=== PATIENT | male | born 1940 | race Asian ===

== ENCOUNTER 2018-03-26 22:53 | Emergency (ER) | END 2018-03-27 01:51 | disposition home or self-care (01) ==

== ENCOUNTER 2018-03-28 12:44 | Observation (INO) | END 2018-03-29 14:50 | disposition home health service (06) ==

== ENCOUNTER 2018-07-14 09:31 | Observation (INO) | payer OTHER ==
[~2018-07-14] VITALS: Ht 177.8 cm; Wt 58.6 kg
[~2018-07-14 09:31] MED LIST: FLUT1BLS INH; IPRA3AMP29 HHN; LEVO500T48 PO; MED4DP PO; PANT40TA4 PO; SIMV80TA18 PO; TAMS0.4C2 PO
[2018-07-14] MEDS ORDERED: SOD CHLORIDE 0.9% 1,000 ML IV STA (10:58)
[2018-07-14] MEDS ORDERED: OMEP40CA6 PO (11:08)
[2018-07-14] MEDS ORDERED: SUCR1TAB56 PO (11:08)
[2018-07-14] MEDS ORDERED: SOD CHLORIDE 0.9% 1,000 ML IV SCH (13:32)
--- NOTE | 2018-07-14 13:36 | ERD ---
ER Documentation Chief Complaint Chief Complaint C/O UNABLE TO EAT OR DRINK DUE TO DIFFICULTY TO SWALLOWING HPI This is a 77-year-old male with a history of hypertension, hyperlipidemia, and dysphasia who presents to the ER for inability to eat and now inability to drink liquids. The patient states that he cannot swallow liquids and states that he has seen cloud systems administrator Dr. Roxann Cabrales an outpatient and has had a barium swallow which shows possible obstruction. The patient's states he is lost 17 pounds over the past 8 weeks and the patient is now having difficulty tolerating liquids so she was nervous and brought the patient in for evaluation. Patient denies any fevers chills, nausea or chest pain at this time ROS All systems reviewed and are negative except as per history of present illness. Medications Home Meds Reported Medications Sucralfate* (Carafate*) 1 Gm Tab, 1 GM PO Q6, TAB 07/14/18 Omeprazole* (Omeprazole*) 40 Mg Capsule.dr, 40 MG PO DAILY, #30 CAP 07/14/18 Tamsulosin Hcl* (Tamsulosin Hcl*) 0.4 Mg Cap.er.24h, 0.4 MG PO HS, CAP 03/28/18 Simvastatin* (Simvastatin*) 80 Mg Tablet, 80 MG PO QHS, #30 TAB 03/28/18 Discontinued Scripts Methylprednisolone* (Medrol* DOSE PACK) 4 Mg/Dose-Pack Tab.ds.pk, 4 MG PO . DIRECTED, #1 PACKET Prov:KENISHA DAVIS 03/29/18 Fluticasone/Vilanterol (Breo Ellipta 200-25 Mcg INH) 1 Each Blst.w.dev, 1 INH INH DAILY, #1 INHALER 3 Refills Prov:KENISHA DAVIS 03/29/18 Pantoprazole* (Pantoprazole*) 40 Mg Tablet.dr, 40 MG PO DAILY for 30 Days, 3 Refills Prov:KENISHA DAVIS 03/29/18 Ipratropium-Albuterol (Ipratropium-Albuterol) 0.5-3 Mg/3 Ml Ampul.neb, 3 ML HHN Q8H RESP THERAPY for 30 Days, 3 Refills Prov:KENISHA DAVIS 03/29/18 Levofloxacin* (Levaquin*) 500 Mg Tablet, 500 MG PO DAILY for 5 Days, TAB Start on 03/30 Prov:KENISHA DAVIS 03/29/18 Allergies Allergies: Coded Allergies: IVP Dye, Iodine Containing (Verified Adverse Reaction, Mild, SWELLING, 07/14/06) PMhx/Soc History of Surgery: Yes Anesthesia Reaction: No Hx Neurological Disorder: No Hx Respiratory Disorders: Yes (sob) Hx Cardiac Disorders: No Hx Psychiatric Problems: No Hx Miscellaneous Medical Probl: Yes (History of nasal and throat cancer) Hx Alcohol Use: Yes (occasional) Hx Substance Use: No Hx Tobacco Use: Yes Smoking Status: Current every day smoker Physical Exam Vitals Vital Signs Date Temp Pulse Resp B/P (MAP) Pulse Ox O2 O2 Flow FiO2 Time Delivery Rate 07/14/18 87 20 115/89 97 Room Air 12:45 (98) 07/14/18 98.6 84 18 134/91 94 09:38 (105) Physical Exam INITIAL VITAL SIGNS: Reviewed by me GENERAL: The patient is appearing elderly male in no acute distress HEENT: Dry mucous membranes, pupils equal, round, and reactive to light. EOMI. There is no scleral icterus. NECK: C-spine is soft and supple, there is no meningismus. There is no cervical lymphadenopathy. LUNGS: Clear to auscultation bilaterally. There are no rales, wheezes or rhonchi. HEART: Regular rate and rhythm, no murmurs, clicks, rubs or gallops. ABDOMEN: Soft, non-tender, non-distended. There are bowel sounds in all four quadrants. No rebound or guarding. EXTREMITIES: There is no peripheral cyanosis or edema. No focal swelling or erythema. NEUROLOGICAL: The patient moves all four extremities with 5/5 strength. Cranial nerves II - XII are intact. Normal gait. Alert and oriented SKIN: There is no apparent rash or petechiae. HEME/LYMPHATIC: There is no evidence of excessive bruising or lymphedema. PSYCHIATRIC: The patient does not appear anxious or depressed. Result Diagram: 07/14/18 1120 07/14/18 1120 Results 24 hrs Laboratory Tests Test 07/14/18 11:20 White Blood Count 8.2 10^3/ul Red Blood Count 5.39 10^6/ul Hemoglobin 15.3 g/dl Hematocrit 47.4 % Mean Corpuscular Volume 87.9 fl Mean Corpuscular Hemoglobin 28.4 pg Mean Corpuscular Hemoglobin Concent 32.3 g/dl Red Cell Distribution Width 13.5 % Platelet Count 283 10^3/UL Mean Platelet Volume 8.5 fl Immature Granulocytes % 0.600 % Neutrophils % 63.3 % Lymphocytes % 18.8 % Monocytes % 8.5 % Eosinophils % 8.3 % Basophils % 0.5 % Nucleated Red Blood Cells % 0.0 /100WBC Immature Granulocytes # 0.050 10^3/ul Neutrophils # 5.2 10^3/ul Lymphocytes # 1.5 10^3/ul Monocytes # 0.7 10^3/ul Eosinophils # 0.7 10^3/ul Basophils # 0.0 10^3/ul Nucleated Red Blood Cells # 0.0 10^3/ul Urine Color YELLOW Urine Clarity SLIGHTLY CLOUDY Urine pH 6.0 Urine Specific [place] 1.023 Urine Ketones NEGATIVE mg/dL Urine Nitrite NEGATIVE mg/dL Urine Bilirubin NEGATIVE mg/dL Urine Urobilinogen NEGATIVE mg/dL Urine Leukocyte Esterase NEGATIVE Marcel/ul Urine Microscopic RBC 1 /HPF Urine Microscopic WBC 0 /HPF Urine Bacteria FEW /HPF Urine Mucus MODERATE /HPF Urine Hemoglobin NEGATIVE mg/dL Urine Glucose NEGATIVE mg/dL Urine Total Protein NEGATIVE mg/dl Sodium Level 141 mmol/L Potassium Level 4.2 mmol/L Chloride Level 102 mmol/L Carbon Dioxide Level 33 mmol/L Anion Gap 6 Blood Urea Nitrogen 15 mg/dl Creatinine 0.75 mg/dl Est Glomerular Filtrat Rate mL/min mL/min Glucose Level 103 mg/dl Calcium Level 9.3 mg/dl Total Bilirubin 0.3 mg/dl Direct Bilirubin 0.00 mg/dl Indirect Bilirubin 0.3 mg/dl Aspartate Amino Transf (AST/SGOT) 29 IU/L Alanine Aminotransferase (ALT/SGPT) 29 IU/L Alkaline Phosphatase 54 IU/L Total Protein 7.8 g/dl Albumin 4.2 g/dl Globulin 3.60 g/dl Albumin/Globulin Ratio 1.16 Lipase 187 U/L Current Medications Medications Dose Sig/Yasmany Start Time Status Last (Trade) Ordered Route PRN Stop Time Admin Dose Reason Admin Sodium 1,000 ml @ Q1H STAT 07/14/18 DC 07/14/18 Chloride 1,000 mls/hr IV 10:58 12:10 07/14/18 11:57 Procedures/MDM This 77-year-old male presents to the ER for progressively worsening dysphasia. The patient states that it started with solid foods and progressed now to liquids as well. The patient was afebrile and hemodynamically stable on my examination. The patient had seen Dr. Sloane garrett in the past and is trying to describe what I believe could be an esophageal stricture however the patient was unsure. I am unable to look up the medical records due to the fact that it was done at an outside facility. I did contact Dr. hutton of any states if the patient is having progressively worsening dysphagia he should be admitted. The patient will be admitted to [facility] physician Dr. Navarrete. I have spoken to him and he accepts the patient. The patient is stable for [facility] at this time Departure Diagnosis: Primary Impression: Swallowing disorder Additional Impression: Dysphagia Condition: JC Mccracken DO Jul 14, 2018 13:36
[2018-07-14] MEDS ORDERED: ACETAMINOPHEN 325 MG TAB PO PRN (14:00)
[2018-07-14] MEDS ORDERED: ONDANSETRON 4 MG INJ IV PRN (14:00)
[2018-07-14] MEDS ORDERED: NACL 0.9% 3 ML SYG IV SCH (15:00)
[2018-07-14] MEDS ORDERED: FAMOTIDINE 20 MG INJ IV SCH (15:00)
[2018-07-14] MEDS: D5W-0.45 NACL + KCL 20 MEQ 1,000 ML IV SCH (16:17)
--- NOTE | 2018-07-14 16:23 | HP ---
DATE OF ADMISSION: 07/14/2018 CHIEF COMPLAINT: Difficulty swallowing. HISTORY OF PRESENT ILLNESS: A 77-year-old male with history of dysphagia times several months, who p resents to the emergency room with persistent difficulty swallowing. The patient initially had diffi culty swallowing solids. He now has difficulty tolerating liquid. He denies any abdominal pain. Ac cording to his , the patient has lost about 17 pounds. He underwent barium swallow study in 04/24 and found to have motility issues. He then underwent EGD in 05/2018. There was evidence of esop hageal mucosal thickening and eosinophilic esophagitis with cystitis. The patient was also treated f or H. Pylori. Initial evaluation in the emergency room normal labs. PAST MEDICAL HISTORY: 1. Chronic dysphagia. 2. Hypertension. 3. Hyperlipidemia. 4. COPD. 5. Benign prostatic hyperplasia. SOCIAL HISTORY: The patient admits to smoking and drinks alcohol on social occasions. PHYSICAL EXAMINATION: GENERAL: Well-developed, well-nourished male who is in no apparent distress. VITAL SIGNS: Stable. He is afebrile. HEENT: Extraocular muscles are intact. Pupils are equal, reactive to light bilaterally. Sclerae ar e anicteric. Oropharynx is clear and moist. NECK: Supple. No JVD. No carotid bruits. LUNGS: Clear to auscultation bilaterally. CARDIAC: Regular rate and rhythm. No murmurs or gallops. ABDOMEN: Soft, nontender, nondistended. Normoactive bowel sounds. EXTREMITIES: No clubbing, cyanosis or edema. NEUROLOGICAL: Grossly nonfocal. ASSESSMENT: 1. A 77-year-old male with persistent dysphagia, now involving solids and liquids. The patient has undergone barium swallow study as well as EGD within the last 2 months prior to admission. 2. Hypertension, well controlled. 3. Hyperlipidemia. 4. Chronic obstructive pulmonary disease. 5. Benign prostatic hyperplasia. PLAN: Place in med-surg observation. Keep patient n.p.o. IV fluid hydration. GI consultation was requested. Dictated By: BROOK URRUTIA/KAVITHA Conf#: [id number] DID#: [id number] CC: SHEKHAR HANCOCK;*EndCC*
--- NOTE | 2018-07-14 17:05 | CONS ---
Assessment/Plan Assessment/Plan Hospital Course (Demo Recall) Summary Assessment and Plan: Assessment: Chronic dysphasia Weight loss Esophagitis reflux History of EGD 06/09/18 -bx intraepithelial eosinophil count up to 6/HPF- not consistent with EOE Recent H. pylori status post Plan: Speech Therapy consult Esophagram/video swallow to assess motility CT soft tissue of the neck - we will change to without contrast- given patients allergies Further recommendations based on clinical course PPI tx BID Patient seen in collaboration with Dr. Dias CC: ADRIEN DIAS ; Consultation Date/Type/Reason Admit Date/Time Jul 14, 2018 at 13:34 Date of Consultation: Jul 14, 2018 Type of Consult GI Reason for Consultation Dysphagia Date/Time of Note DATE: 07/14/18 TIME: 16:52 Hx of Present Illness This is a 77 year old male with chronic dysphagia he under went an EGD at [facility] [place] of this year mucosal changes. Mid esophagus, distal esophagus biopsies were obtained because gastritis apices were also obtained biopsies were positive for H. pylori patient is status post treatment for asthma H. pylori sure if DVT was rechecked. Distal esophageal biopsy showed mild chronic gastritis focal service erosions mild reflux esophagitis negative for active inflammation or dysplasia. No specialized intestinal metaplasia, negative for Collins's esophagus intraepithelial eosinophil count up to 6/hpf., Mid esophagus biopsy shows mild reflux esophagitis intraepithelial lisinopril count up to 1/hpf negative for active inflammation or dysplasia, no glandular epithelium identified she is due for motility study next month however if symptoms of dysphagia became progressively worse and patient sent to ED for further evaluation. Patient notes a 17 pound weight loss over some period of t alexis. Patient states his last colonoscopy was about 3 or 4 years ago negative per patient's . Currently no complaints of rectal bleeding i.e. hematochezia or melena. Given results of recent EGD there is no plan to repeat EGD at this time. We will proceed with speech therapy and obtain a video swallow to assess motility. And repeat CT of the neck with contrast. Further recommend based on clinical course Review of Systems: A 12 system, review was conducted and is negative except as noted in the HPI or here. Past Medical History Home Meds Reported Medications Sucralfate* (Carafate*) 1 Gm Tab, 1 GM PO Q6, TAB 07/14/18 Omeprazole* (Omeprazole*) 40 Mg Capsule., 40 MG PO DAILY, #30 CAP 07/14/18 Tamsulosin Hcl* (Tamsulosin Hcl*) 0.4 Mg Cap.er.24h, 0.4 MG PO HS, CAP 03/28/18 Simvastatin* (Simvastatin*) 80 Mg Tablet, 80 MG PO QHS, #30 TAB 03/28/18 Discontinued Scripts Methylprednisolone* (Medrol* DOSE PACK) 4 Mg/Dose-Pack Tab.ds.pk, 4 MG PO . DIRECTED, #1 PACKET Prov:KENISHA DAVIS 03/29/18 Fluticasone/Vilanterol (Breo Ellipta 200-25 Mcg INH) 1 Each Blst.w.dev, 1 INH INH DAILY, #1 INHALER 3 Refills Prov:KENISHA DAVIS 03/29/18 Pantoprazole* (Pantoprazole*) 40 Mg Tablet., 40 MG PO DAILY for 30 Days, 3 Refills Prov:KENISHA DAVIS 03/29/18 Ipratropium-Albuterol (Ipratropium-Albuterol) 0.5-3 Mg/3 Ml Ampul.neb, 3 ML HHN Q8H RESP THERAPY for 30 Days, 3 Refills Prov:KENISHA DAVIS 03/29/18 Levofloxacin* (Levaquin*) 500 Mg Tablet, 500 MG PO DAILY for 5 Days, TAB Start on 03/30 Prov:KENISHA DAVIS 03/29/18 Medications Current Medications Sodium Chloride 1,000 ml @ 80 mls/hr [id number] IV ; Start 07/14/18 at 13:32; Stop 07/15/18 at 02:01 Ondansetron HCl (Zofran Inj) 4 mg BRIDGE ORDER PRN IV NAUSEA/VOMITING; Start 07/14/18 at 14:00; Stop 07/15/18 at 13:59 Acetaminophen (Tylenol Tab) 650 mg ER BRIDGE PRN PO .MILD PAIN 1-3 OR TEMP; Start 07/14/18 at 14:00; Stop 07/15/18 at 13:59 Potassium Chloride/Dextrose/ Sod Cl 1,000 ml @ 100 mls/hr Q10H IV Last administered on 07/14/18at 16:17; Admin Dose 100 MLS/HR; Start 07/14/18 at 14:45 IV Flush (NS 3 ml) 3 ml PER PROTOCOL IV ; Start 07/14/18 at 15:00 Hydromorphone HCl (Dilaudid) 0.5 mg Q4H PRN IV .SEVERE PAIN 7-10; Start 07/14/18 at 15:00 Famotidine (Pepcid Iv) 20 mg Q12 IV ; Start 07/14/18 at 15:00 Allergies: Coded Allergies: IVP Dye, Iodine Containing (Verified Adverse Reaction, Mild, SWELLING, 07/14/06) Social History Smoking Status: Current every day smoker Exam/Review of Systems Exam Vitals Vital Signs Date Temp Pulse Resp B/P (MAP) Pulse Ox O2 O2 Flow FiO2 Time Delivery Rate 07/14/18 77 20 160/103 96 Room Air 14:00 (122) 07/14/18 98.6 09:38 PHYSICAL EXAMINATION: GENERAL: Thin, alert & oriented x 3 SKIN: No lesions EYES: Pupils equal reactive to light, no discharge. EARS/NOSE AND THROAT: Ears normal NECK: Supple CHEST: Inspection within normal limits. CARDIOVASCULAR: Heart: Regular rate and rhythm, no murmurs, gallops or rubs. Peripheral pulses present within normal limits, no cyanosis, clubbing or edemas. No pulsatile abdominal mass RESPIRATORY: Inspiratory wheezing, no rubs GASTROINTESTINAL AND LIVER: Abdomen: Soft, non tenderness, non-distended, no hernias, no masses, no organomegaly, no ascites, no guarding, no rebound tenderness, normoactive bowel sounds. Rectal: Deferred. EXTREMITIES: No cyanosis, clubbing or edema. Results Result Diagram: 07/14/18 1120 07/14/18 1120 Results 24hrs Laboratory Tests Test 07/14/18 11:20 White Blood Count 8.2 # Red Blood Count 5.39 Hemoglobin 15.3 Hematocrit 47.4 Mean Corpuscular Volume 87.9 Mean Corpuscular Hemoglobin 28.4 L Mean Corpuscular Hemoglobin Concent 32.3 Red Cell Distribution Width 13.5 Platelet Count 283 Mean Platelet Volume 8.5 Immature Granulocytes % 0.600 H Neutrophils % 63.3 Lymphocytes % 18.8 Monocytes % 8.5 Eosinophils % 8.3 H Basophils % 0.5 Nucleated Red Blood Cells % 0.0 Immature Granulocytes # 0.050 H Neutrophils # 5.2 Lymphocytes # 1.5 Monocytes # 0.7 Eosinophils # 0.7 H Basophils # 0.0 Nucleated Red Blood Cells # 0.0 Urine Color YELLOW Urine Clarity SLIGHTLY CLOUDY A Urine pH 6.0 Urine Specific [place] 1.023 Urine Ketones NEGATIVE Urine Nitrite NEGATIVE Urine Bilirubin NEGATIVE Urine Urobilinogen NEGATIVE Urine Leukocyte Esterase NEGATIVE Urine Microscopic RBC 1 Urine Microscopic WBC 0 Urine Bacteria FEW A Urine Mucus MODERATE Urine Hemoglobin NEGATIVE Urine Glucose NEGATIVE Urine Total Protein NEGATIVE Sodium Level 141 Potassium Level 4.2 Chloride Level 102 Carbon Dioxide Level 33 H Anion Gap 6 Blood Urea Nitrogen 15 Creatinine 0.75 Est Glomerular Filtrat Rate mL/min Glucose Level 103 Calcium Level 9.3 Total Bilirubin 0.3 Direct Bilirubin 0.00 Indirect Bilirubin 0.3 Aspartate Amino Transf (AST/SGOT) 29 Alanine Aminotransferase (ALT/SGPT) 29 Alkaline Phosphatase 54 Total Protein 7.8 Albumin 4.2 Globulin 3.60 H Albumin/Globulin Ratio 1.16 Lipase 187 Medications Medication Current Medications Sodium Chloride 1,000 ml @ 80 mls/hr [id number] IV ; Start 07/14/18 at 13:32; Stop 07/15/18 at 02:01 Ondansetron HCl (Zofran Inj) 4 mg BRIDGE ORDER PRN IV NAUSEA/VOMITING; Start 07/14/18 at 14:00; Stop 07/15/18 at 13:59 Acetaminophen (Tylenol Tab) 650 mg ER BRIDGE PRN PO .MILD PAIN 1-3 OR TEMP; Start 07/14/18 at 14:00; Stop 07/15/18 at 13:59 Potassium Chloride/Dextrose/ Sod Cl 1,000 ml @ 100 mls/hr Q10H IV Last administered on 07/14/18at 16:17; Admin Dose 100 MLS/HR; Start 07/14/18 at 14:45 IV Flush (NS 3 ml) 3 ml PER PROTOCOL IV ; Start 07/14/18 at 15:00 Hydromorphone HCl (Dilaudid) 0.5 mg Q4H PRN IV .SEVERE PAIN 7-10; Start 07/14/18 at 15:00 Famotidine (Pepcid Iv) 20 mg Q12 IV ; Start 07/14/18 at 15:00 MAMIE JOHNSON Jul 14, 2018 17:02
[2018-07-14 17:19] VITALS: Ht 177.8 cm; Wt 58.6 kg
[2018-07-14] MEDS: PANTOPRAZOLE 40 MG INJ IV SCH (18:14)
[2018-07-14 19:40] VITALS: BP 138/80; PULSE 74; RESP 20
[2018-07-15] VITALS (19 sets, daily range): BP systolic 112–185; BP diastolic 70–105; PULSE 70–89; RESP 14–22
[2018-07-15] MEDS: D5W-0.45 NACL + KCL 20 MEQ 1,000 ML IV SCH ×3 (02:59→13:00)
[2018-07-15] MEDS: PANTOPRAZOLE 40 MG INJ IV SCH ×2 (05:55→17:00)
--- NOTE | 2018-07-15 09:22 | PN ---
Date/Time of Note Date/Time of Note DATE: 07/15/18 TIME: 09:19 Subjective Patient has no complaints. Continues to have difficulty swallowing Afebrile vital signs are stable Lungs are clear to auscultation Cardiac regular rate and rhythm Abdomen soft nontender nondistended normoactive bowel sounds Extremities no edema Neurological nonfocal Soft tissue neck CAT scan is unremarkable Objective Vitals Vital Signs Date Temp Pulse Resp B/P (MAP) Pulse Ox O2 O2 Flow FiO2 Time Delivery Rate 07/15/18 98.8 77 18 126/74 95 08:50 (91) 07/14/18 Room Air 14:00 Results Result Diagram: 07/14/18 1120 07/14/18 1120 Medications Medications Current Medications Ondansetron HCl (Zofran Inj) 4 mg BRIDGE ORDER PRN IV NAUSEA/VOMITING; Start 07/14/18 at 14:00; Stop 07/15/18 at 13:59 Acetaminophen (Tylenol Tab) 650 mg ER BRIDGE PRN PO .MILD PAIN 1-3 OR TEMP; Start 07/14/18 at 14:00; Stop 07/15/18 at 13:59 Potassium Chloride/Dextrose/ Sod Cl 1,000 ml @ 100 mls/hr Q10H IV Last administered on 07/15/18at 02:59; Admin Dose 100 MLS/HR; Start 07/14/18 at 14:45 IV Flush (NS 3 ml) 3 ml PER PROTOCOL IV ; Start 07/14/18 at 15:00 Hydromorphone HCl (Dilaudid) 0.5 mg Q4H PRN IV .SEVERE PAIN 7-10; Start 07/14/18 at 15:00 Pantoprazole (Protonix Iv) 40 mg BID@06,18 IV Last administered on 07/15/18at 05:55; Admin Dose 40 MG; Start 07/14/18 at 18:00 VTE Prophylaxis Risk score (from Nsg)>0 risk: 4 SCD applied (from Nsg): Yes Lines/Catheters IV Catheter Type: Saline Lock Beaver in Place: No Assessment/Plan Assessment/Plan 77-year-old male with chronic dysphasia, now involving solids and liquids Status post barium swallow and EGD. There is no evidence of eosinophilic eso phagitis Hyperlipidemia Peripheral vascular disease COPD Status post right carotid endarterectomy Proceed with video swallow N.p.o. GI follow-up BROOK PANTOJA MD Jul 15, 2018 09:22
--- NOTE | 2018-07-15 12:31 | PSY ---
Date/Time of Note Date/Time of Note DATE: 07/15/18 TIME: 12:27 Psychiatric Subjective Eval Consent Pt consented to telemedicine: No Subjective Evaluation Patient location: inpatient Chief Complaint: C/O UNABLE TO EAT OR DRINK DUE TO DIFFICULTY TO SWALLOWING History of present illness Patient is a 77-year-old male with history of dysphagia and difficulty swallowing. On a face to face evaluation, patient is tearful, states he is better off that leave like this. He denies thought suicide , states he will not take his own life, but will be happy if occurs naturally. Discussed risk ad benefits of anti depressant but patient declined medications, Past psychiatric history Denies Hospitalization: other Medical history Problems Medical Problems: (1) Bronchospasm Status: Acute (2) COPD exacerbation Status: Acute (3) Dysphagia Status: Acute (4) Shortness of breath Status: Acute (5) Swallowing disorder Status: Acute Allergies: Coded Allergies: IVP Dye, Iodine Containing (Verified Adverse Reaction, Mild, SWELLING, 07/14/06) Substance Abuse Substance abuse history: No Prior substance abuse treatmen: No Social History Marital status: DPA/Conservatorship: No Psychiatric Objective Eval Review of Systems: Review of Systems: Not Applicable Physical Examination: Physical Examination: Not Applicable Mental Status Examination: Appearance: Groomed Eye Contact: Good Psychomotor Activity: Slow Behavior: Cooperative Speech: Soft AFFECT: Flat Mood: Depressed Though Process: Linear Orientation: x4 Cognition: Alert Insight: Intact Attention Span: Distractible Laboratory Results Laboratory Tests Test 07/14/18 11:20 07/15/18 04:28 White Blood Count 8.2 10^3/ul Red Blood Count 5.39 10^6/ul Hemoglobin 15.3 g/dl Hematocrit 47.4 % Mean Corpuscular Volume 87.9 fl Mean Corpuscular Hemoglobin 28.4 pg Mean Corpuscular Hemoglobin Concent 32.3 g/dl Red Cell Distribution Width 13.5 % Platelet Count 283 10^3/UL Mean Platelet Volume 8.5 fl Immature Granulocytes % 0.600 % Neutrophils % 63.3 % Lymphocytes % 18.8 % Monocytes % 8.5 % Eosinophils % 8.3 % Basophils % 0.5 % Nucleated Red Blood Cells % 0.0 /100WBC Immature Granulocytes # 0.050 10^3/ul Neutrophils # 5.2 10^3/ul Lymphocytes # 1.5 10^3/ul Monocytes # 0.7 10^3/ul Eosinophils # 0.7 10^3/ul Basophils # 0.0 10^3/ul Nucleated Red Blood Cells # 0.0 10^3/ul Urine Color YELLOW Urine Clarity SLIGHTLY CLOUDY Urine pH 6.0 Urine Specific Silva 1.023 Urine Ketones NEGATIVE mg/dL Urine Nitrite NEGATIVE mg/dL Urine Bilirubin NEGATIVE mg/dL Urine Urobilinogen NEGATIVE mg/dL Urine Leukocyte Esterase NEGATIVE Marcel/ul Urine Microscopic RBC 1 /HPF Urine Microscopic WBC 0 /HPF Urine Bacteria FEW /HPF Urine Mucus MODERATE /HPF Urine Hemoglobin NEGATIVE mg/dL Urine Glucose NEGATIVE mg/dL Urine Total Protein NEGATIVE mg/dl Sodium Level 141 mmol/L Potassium Level 4.2 mmol/L Chloride Level 102 mmol/L Carbon Dioxide Level 33 mmol/L Anion Gap 6 Blood Urea Nitrogen 15 mg/dl Creatinine 0.75 mg/dl Est Glomerular Filtrat Rate mL/min mL/min Glucose Level 103 mg/dl Calcium Level 9.3 mg/dl Total Bilirubin 0.3 mg/dl Direct Bilirubin 0.00 mg/dl Indirect Bilirubin 0.3 mg/dl Aspartate Amino Transf (AST/SGOT) 29 IU/L Alanine Aminotransferase (ALT/SGPT) 29 IU/L Alkaline Phosphatase 54 IU/L Total Protein 7.8 g/dl Albumin 4.2 g/dl Globulin 3.60 g/dl Albumin/Globulin Ratio 1.16 Lipase 187 U/L Hemoglobin A1c 5.8 % Assessment and Plan Assessment/Diagnosis Diagnosis Depressive disorder Single episode Recommendation/Plan Medication Management Declines medication Discharge Disposition: Other Legal Status: Voluntary (Does not meet criteria for 5150 hold) LEX RUFFIN NP Jul 15, 2018 12:31
--- NOTE | 2018-07-15 13:37 | PN ---
Date/Time of Note Date/Time of Note DATE: 07/15/18 TIME: 13:32 Assessment/Plan VTE Prophylaxis Risk score (from Ns)>0 risk: 4 SCD applied (from Ns): Yes Pharmacological prophylaxis: heparin Lines/Catheters [facility] Peripheral IV Urinary Cath still in place: No Assessment/Plan Assessment/Plan Assessment: Chronic dysphasia Weight loss Esophagitis reflux History of EGD 06/09/18 -bx intraepithelial eosinophil count up to 6/HPF- not consistent with EOE Recent H. pylori status post Plan: PEG placement today Keep the patient n.p.o. Check INR CT soft tissue of the neck -negative for masses PPI tx BID Patient seen in collaboration with Dr. Villarreal Subjective: Patient is currently n.p.o. for possible PEG placement. Discussed risks and benefits of the procedure with the patient and the at the bedside. They are both agreeable to the procedure. Results of neck CT reviewed with the family. PHYSICAL EXAMINATION: GENERAL: Well developed, mal nourished, alert & oriented x 3, in no acute distress SKIN: No lesions, no stigmata chronic liver disease, no evidence of bleeding diathesis LYMPHATIC: No palpable lymphadenopathy. HEAD: Normocephalic, atraumatic, no tenderness. EYES: Pupils equal reactive to light and accommodation, full extraocular movements, sclera clear, non-icteric, no discharge. EARS/NOSE AND THROAT: Ears normal, nose normal, oropharynx normal, oral membranes well hydrated without lesions. NECK: Supple, no masses, thyroid normal, JVP within normal limits, carotids normal without bruits. CHEST: Inspection within normal limits. CARDIOVASCULAR: Heart: Regular rate and rhythm, no murmurs, gallops or rubs. Peripheral pulses present within normal limits, no cyanosis, clubbing or edemas. No pulsatile abdominal mass RESPIRATORY: Lungs clear to auscultation and percussion, no wheezing, no rubs GASTROINTESTINAL AND LIVER: Abdomen: Soft, non tenderness, non-distended, no hernias, no masses, no organomegaly, no ascites, no guarding, no rebound tenderness, normoactive bowel sounds. Rectal: Deferred. GENITOURINARY: [Male genitalia within normal limits. EXTREMITIES: No cyanosis, clubbing or edema. Result Diagram: 07/14/18 1120 07/14/18 1120 Results 24hrs Laboratory Tests Test 07/15/18 04:28 Hemoglobin A1c 5.8 CC: SHEKHAR HANCOCK MD ; Exam/Review of Systems Exam Vitals Vital Signs Date Temp Pulse Resp B/P (MAP) Pulse Ox O2 O2 Flow FiO2 Time Delivery Rate 07/15/18 98.8 77 18 126/74 95 08:50 (91) 07/14/18 Room Air 14:00 Results Results 24hrs Laboratory Tests Test 07/15/18 04:28 Hemoglobin A1c 5.8 Medications Medication Current Medications Ondansetron HCl (Zofran Inj) 4 mg BRIDGE ORDER PRN IV NAUSEA/VOMITING; Start 07/14/18 at 14:00; Stop 07/15/18 at 13:59 Acetaminophen (Tylenol Tab) 650 mg ER BRIDGE PRN PO .MILD PAIN 1-3 OR TEMP; Start 07/14/18 at 14:00; Stop 07/15/18 at 13:59 Potassium Chloride/Dextrose/ Sod Cl 1,000 ml @ 100 mls/hr Q10H IV Last ad ministered on 07/15/18at 13:00; Admin Dose 100 MLS/HR; Start 07/14/18 at 14:45 IV Flush (NS 3 ml) 3 ml PER PROTOCOL IV ; Start 07/14/18 at 15:00 Hydromorphone HCl (Dilaudid) 0.5 mg Q4H PRN IV .SEVERE PAIN 7-10; Start 07/14/18 at 15:00 Pantoprazole (Protonix Iv) 40 mg BID@06,18 IV Last administered on 07/15/18at 05:55; Admin Dose 40 MG; Start 07/14/18 at 18:00 LORENA ACHARYA SAMPLE DISPLAY PREPARER Jul 15, 2018 13:37
--- NOTE | 2018-07-15 17:18 | PREAC ---
Date/Time of Note Date/Time of Note DATE: 07/15/18 TIME: 17:17 Anesthesia Eval and Record Evaluation Time Pre-Procedure Interview DATE: 07/15/18 TIME: 17:17 Age 77 Sex male NPO: 8 hrs Preoperative diagnosis Dysphagia Planned procedure PEG tube placement Past Medical History Past Medical History: Includes Cardio: Dyslipidemia Pulm: COPD GI: GERD Surgery & Anesthesia Issues No known issue Meds Anticoagulation: No Beta Irma within 24 hr: No Reason Beta Irma not given: Pt. not on B-Irma Reported Medications Sucralfate* (Carafate*) 1 Gm Tab, 1 GM PO Q6, TAB 07/14/18 Omeprazole* (Omeprazole*) 40 Mg Capsule.dr, 40 MG PO DAILY, #30 CAP 07/14/18 Tamsulosin Hcl* (Tamsulosin Hcl*) 0.4 Mg Cap.er.24h, 0.4 MG PO HS, CAP 03/28/18 Simvastatin* (Simvastatin*) 80 Mg Tablet, 80 MG PO QHS, #30 TAB 03/28/18 Discontinued Scripts Methylprednisolone* (Medrol* DOSE PACK) 4 Mg/Dose-Pack Tab.ds.pk, 4 MG PO . D IRECTED, #1 PACKET Prov:KENISHA DAVIS 03/29/18 Fluticasone/Vilanterol (Breo Ellipta 200-25 Mcg INH) 1 Each Blst.w.dev, 1 INH INH DAILY, #1 INHALER 3 Refills Prov:KENISHA DAVIS 03/29/18 Pantoprazole* (Pantoprazole*) 40 Mg Tablet., 40 MG PO DAILY for 30 Days, 3 Refills Prov:KENISHA DAVIS 03/29/18 Ipratropium-Albuterol (Ipratropium-Albuterol) 0.5-3 Mg/3 Ml Ampul.neb, 3 ML HHN Q8H RESP THERAPY for 30 Days, 3 Refills Prov:KENISHA DAVIS 03/29/18 Levofloxacin* (Levaquin*) 500 Mg Tablet, 500 MG PO DAILY for 5 Days, TAB Start on 03/30 Prov:KENISHA DAVIS 03/29/18 Current Medications Potassium Chloride/Dextrose/ Sod Cl 1,000 ml @ 100 mls/hr Q10H IV Last administered on 07/15/18at 13:00; Admin Dose 100 MLS/HR; Start 07/14/18 at 14:45 IV Flush (NS 3 ml) 3 ml PER PROTOCOL IV ; Start 07/14/18 at 15:00 Hydromorphone HCl (Dilaudid) 0.5 mg Q4H PRN IV .SEVERE PAIN 7-10; Start 07/14/18 at 15:00 Pantoprazole (Protonix Iv) 40 mg BID@06,18 IV Last administered on 07/15/18at 17:00; Admin Dose 40 MG; Start 07/14/18 at 18:00 Meds reviewed: Yes Allergies Coded Allergies: IVP Dye, Iodine Containing (Verified Adverse Reaction, Mild, SWELLING, 07/14/06) Allergies Reviewed: Yes Labs/Studies Labs Reviewed: Reviewed by anesthesiologist Result Diagram: 07/14/18 1120 07/14/18 1120 test: N/A Studies: ECG Pre-procedure Exam Last vitals Vital Signs Date Temp Pulse Resp B/P (MAP) Pulse Ox O2 O2 Flow FiO2 Time Delivery Rate 07/15/18 97.8 70 18 112/70 93 15:18 (84) 07/14/18 Room Air 14:00 Airway: Adequate mouth opening, Adequate thyromental dist Mallampati: Mallampati II Teeth: Normal Lung: Normal Heart: Normal ASA Physical Status ASA physical status: 4 Emergency: None Planned Anesthetic General/MAC: MAC Planned Pain Management Parenteral pain med Pre-operative Attestations Prior to commencing anesthesia and surgery, the patient was re-evaluated, there was verification of: *The patient's identity *The results of appropriate recent lab work and preoperative vital signs *The above evaluation not changing prior to induction *Anesthetic plan, risk benefits, alternative and complications discussed with patient/family; questions answered; patient/family understands, accepts and wishes to proceed. EDDI ALEXANDRA MD Jul 15, 2018 17:18
[2018-07-15] MEDS ORDERED: PROPOFOL 40 ML ONE (17:19)
[2018-07-15] MEDS ORDERED: LIDOCAINE 2% (SDV) 5 ML INJ ONE (17:19)
[2018-07-15] MEDS ORDERED: CEFAZOLIN 1 GM/50 ML (PMX) 50 ML IVPB ONE (17:22)
--- NOTE | 2018-07-15 17:40 | PAC ---
Date/Time of Note Date/Time of Note DATE: 07/15/18 TIME: 17:39 Post-Anesthesia Notes Post-Anesthesia Note Last documented vital signs Vital Signs Date Temp Pulse Resp B/P (MAP) Pulse Ox O2 O2 Flow FiO2 Time Delivery Rate 07/15/18 97.8 70 18 112/70 93 15:18 (84) 07/14/18 Room Air 14:00 Activity: WNL Respiratory function: WNL Cardiovascular function: WNL Mental status: Baseline Pain reasonably controlled: Yes Hydration appropriate: Yes Nausea/Vomiting absent: Yes Comments BP:146/78, P:88, spo2:100%, T:98,8 EDDI ALEXANDRA MD Jul 15, 2018 17:40
[2018-07-15] MEDS ORDERED: ONDANSETRON 4 MG INJ IV PRN (18:00)
[2018-07-15] MEDS ORDERED: MEPERIDINE 25 MG INJ IV PRN (18:00)
[2018-07-15] MEDS ORDERED: FENTAnyl 50 MCG/ML VIAL IV PRN (18:00)
[2018-07-15] MEDS ORDERED: DIPHENHYDRAMINE 50 MG INJ IV PRN (18:00)
[2018-07-15] MEDS: HYDROmorphONE 0.5 MG/0.5 ML SYG IV PRN (21:03)
[2018-07-16] MEDS: D5W-0.45 NACL + KCL 20 MEQ 1,000 ML IV SCH ×2 (01:20→11:40)
[2018-07-16 02:00] VITALS: BP 141/79; PULSE 100; RESP 17
[2018-07-16 02:35] VITALS: BP 138/76; PULSE 88; RESP 18
[2018-07-16] MEDS: PANTOPRAZOLE 40 MG INJ IV SCH ×2 (06:00→17:36)
[2018-07-16] MEDS: HYDROmorphONE 0.5 MG/0.5 ML SYG IV PRN ×2 (06:02→15:55)
[2018-07-16 08:00] VITALS: BP 91/54; PULSE 71; RESP 16
--- NOTE | 2018-07-16 08:41 | PDOCDIS ---
Discharge Instructions CONDITION [id number] Patient Condition: [id number] Good HOME CARE INSTRUCTIONS: [id number] Diet Instructions: [id number] [id number] Special Diet: [id number] GT feeding with fiber source ACTIVITY: [id number] Activity Restrictions: [id number] No Restrictions FOLLOW UP/APPOINTMENTS Follow-up Plan pcp [address] Reaves 1 week BROOK PANTOJA MD Jul 16, 2018 08:41
--- NOTE | 2018-07-16 09:44 | PN ---
Date/Time of Note Date/Time of Note DATE: 07/16/18 TIME: 09:34 Assessment/Plan VTE Prophylaxis Risk score (from Ns)>0 risk: 5 SCD applied (from Ns): Yes Pharmacological prophylaxis: heparin Lines/Catheters IV [facility]ter Type (from [facility]): Peripheral IV Urinary Cath still in place: No Assessment/Plan Assessment/Plan Assessment: Chronic dysphasia S/p PEG placement 07/15/18 -20 Fr Gastrostomy tube Weight loss Esophagitis reflux History of EGD 06/09/18 -bx intraepithelial eosinophil count up to 6/HPF- not consistent with EOE Recent H. pylori status post treatment Plan: PEG site care per protocol May take PO food for pleasure CT soft tissue of the neck -negative for masses PPI tx BID Patient seen in collaboration with Dr. Reaves Subjective: Patient is doing well after PEG placement. The placement site is clear of drainage. Feeding has been started this morning at 30 ml/hr with the goal of 60cc/hr. Plan for discharge today. From GI standpoint patient appears adequate for outpatient management. PHYSICAL EXAMINATION: GENERAL: Well developed, mal nourished, alert & oriented x 3, in no acute distress SKIN: No lesions, no stigmata chronic liver disease, no evidence of bleeding diathesis LYMPHATIC: No palpable lymphadenopathy. HEAD: Normocephalic, atraumatic, no tenderness. EYES: Pupils equal reactive to light and accommodation, full extraocular movements, sclera clear, non-icteric, no discharge. EARS/NOSE AND THROAT: Ears normal, nose normal, oropharynx normal, oral me mbranes well hydrated without lesions. NECK: Supple, no masses, thyroid normal, JVP within normal limits, carotids normal without bruits. CHEST: Inspection within normal limits. CARDIOVASCULAR: Heart: Regular rate and rhythm, no murmurs, gallops or rubs. Peripheral pulses present within normal limits, no cyanosis, clubbing or edemas. No pulsatile abdominal mass RESPIRATORY: Lungs clear to auscultation and percussion, no wheezing, no rubs GASTROINTESTINAL AND LIVER: Abdomen: Soft, non tenderness, PEG in place with continuous feeding - site is clear, non-distended, no hernias, no masses, no organomegaly, no ascites, no guarding, no rebound tenderness, normoactive bowel sounds. Rectal: Deferred. GENITOURINARY: [Male genitalia within normal limits. EXTREMITIES: No cyanosis, clubbing or edema. Result Diagram: 07/14/18 1120 07/14/18 1120 Results 24hrs Laboratory Tests Test 07/15/18 14:03 Prothrombin Time 12.9 Prothrombin Time Ratio 1.0 INR International Normalized Ratio 0.96 CC: SHEKHAR REAVES MD ; Exam/Review of Systems Exam Vitals Vital Signs Date Temp Pulse Resp B/P (MAP) Pulse Ox O2 O2 Flow FiO2 Time Delivery Rate 07/16/18 97.9 71 16 91/54 (66) 95 08:00 07/15/18 Room Air 18:19 07/15/18 10 17:34 Intake and Output 07/15/18 07/15/18 07/16/18 1515:00 23:00 07:00 IntakeIntake Total 1000 ml 400 ml 1000 ml BalanceBalance 1000 ml 400 ml 1000 ml Results Results 24hrs Laboratory Tests Test 07/15/18 14:03 Prothrombin Time 12.9 Prothrombin Time Ratio 1.0 INR International Normalized Ratio 0.96 Medications Medication Current Medications Potassium Chloride/Dextrose/ Sod Cl 1,000 ml @ 100 mls/hr Q10H IV Last administered on 07/16/18at 01:20; Admin Dose 100 MLS/HR; Start 07/14/18 at 14:45 IV Flush (NS 3 ml) 3 ml PER PROTOCOL IV ; Start 07/14/18 at 15:00 Hydromorphone HCl (Dilaudid) 0.5 mg Q4H PRN IV .SEVERE PAIN 7-10 Last administered on 07/16/18at 06:02; Admin Dose 0.5 MG; Start 07/14/18 at 15:00 Pantoprazole (Protonix Iv) 40 mg BID@06,18 IV Last administered on 07/16/18at 06:00; Admin Dose 40 MG; Start 07/14/18 at 18:00 LORENA ACHARYA NP Jul 16, 2018 09:44
[2018-07-16 14:05] VITALS: BP 145/79; RESP 17
[2018-07-16 20:00] VITALS: BP 119/73; PULSE 82; RESP 18
--- NOTE | 2018-07-18 09:37 | PDOCDIS ---
Discharge Instructions DIAGNOSIS Discharge Diagnosis 77-year-old male with chronic dysphasia Status post percutaneous gastrostomy placement Hypertension Hyperlipidemia COPD BPH 77-year-old male with chronic dysphasia for several months, presented to emergency room after he reported persistent difficulty swallowing solids and liquids. Patient had undergone evaluation as outpatient. Barium swallow in April 2019 showed abnormal motility. Patient had EGD in May 2018. There was mucosal thickening. Eosinophilic esophagitis it was ruled out. Patient was seen in consultation by bakery decorator. He agreed to PEG placement. Patient was a started on tube feeding. Family requested bolus feeding. He was evaluated by dietitian. Home health nurse was requested. Patient reported to the Nurse that he did not want to live any longer. He was evaluated by psychiatry nurse and cleared for discharge. He denied any suicidal ideations. His exam was unremarkable. Patient was discharged home in a stable condition CONDITION [id number] Patient Condition: [address] Good HOME CARE INSTRUCTIONS: [id number] Diet Instructions: [id number] Special Diet: [address] ON tube feeding ACTIVITY: [id number] Activity Restrictions: [address] No Restrictions FOLLOW UP/APPOINTMENTS Follow-up Plan pcp [address] Reaves 1 week REFERRALS [id number] Agency Name and Phone [address] with Dynamic Number: . BROOK PANTOJA MD Jul 18, 2018 09:36
== END 2018-07-16 21:42 | disposition home health service (06) ==
LOC: E/R 09:31 → INTOOBSV 13:34 → PP2 13:34
PROVIDERS: ADMIT Internal Medicine; ATTEND Internal Medicine
DX: R13.10 Dysphagia, unspecified (principal); R63.3 Feeding difficulties; K21.0 Gastro-esophageal reflux disease with esophagitis; I10 Essential (primary) hypertension; E78.5 Hyperlipidemia, unspecified; J44.9 Chronic obstructive pulmonary disease, unspecified; N40.0 Benign prostatic hyperplasia without lower urinary tract symptoms; F17.200 Nicotine dependence, unspecified, uncomplicated; I73.9 Peripheral vascular disease, unspecified; R63.4 Abnormal weight loss; Z68.1 Body mass index [BMI] 19.9 or less, adult
CPT/HCPCS: 36415; 43246; 70490; 80053; 81001; 83036; 83690; 85025; 85610; 92526; 92610; 99285; C9113; G0378; J0690; J1170; J3480; J7030; 81003; 99217